=== PATIENT | female | born 1960 | race Caucasian/White ===

== ENCOUNTER → 2017-02-02 | Outpatient (CLI) | payer OTHER ==
--- NOTE | 2017-02-04 11:42 | MM ---
Reason for exam: screening (asymptomatic). Last mammogram was performed 1 year and 1 month ago. History: Patient is postmenopausal. Family history of premenopausal breast cancer in mother at age 38. Benign US left guided mammotome of the left breast, November 30, 2006. Took hormonal contraceptives for 2 years beginning at age 17. Physical Findings: A clinical breast exam by your physician is recommended on an annual basis and results should be correlated with mammographic findings. MG Screening Mammo w CAD Bilateral CC and MLO view(s) were taken. Prior study comparison: January 17, 2016, bilateral MG screening mammo w CAD. April 12, 2015, left breast MG diagnostic mammo LT w CAD. October 03, 2014, bilateral MG screening mammo w CAD. There are scattered fibroglandular densities. Previous mammotome biopsy within the left breast. ASSESSMENT: Negative, BI-RAD 1 RECOMMENDATION: Routine screening mammogram of both breasts in 1 year.
== END | disposition home or self-care (01) ==
LOC: RADMAMWWP 15:11
PROVIDERS: ATTEND Family Medicine
DX: Z12.31 Encounter for screening mammogram for malignant neoplasm of breast (principal)

== ENCOUNTER → 2018-04-25 | Outpatient (CLI) | payer BC ==
--- NOTE | 2018-04-26 10:23 | MM ---
Reason for exam: screening (asymptomatic). Last mammogram was performed 1 year and 3 months ago. History: Patient is postmenopausal. Family history of premenopausal breast cancer in mother at age 38. Benign US left guided mammotome of the left breast, November 30, 2006. Took hormonal contraceptives for 2 years beginning at age 17. Physical Findings: A clinical breast exam by your physician is recommended on an annual basis and results should be correlated with mammographic findings. MG Screening Mammo w CAD Bilateral CC and MLO view(s) were taken. Prior study comparison: February 02, 2017, bilateral MG screening mammo w CAD. January 17, 2016, bilateral MG screening mammo w CAD. There are scattered fibroglandular densities. Previous mammotome biopsy in the left breast. There is no discrete abnormality. "Split" nipple left breast stable. ASSESSMENT: Benign, BI-RAD 2 RECOMMENDATION: Routine screening mammogram of both breasts in 1 year.
== END | disposition home or self-care (01) ==
LOC: RADMAMWWP 11:47
PROVIDERS: ATTEND Family Medicine
DX: Z12.31 Encounter for screening mammogram for malignant neoplasm of breast (principal)
CPT/HCPCS: 77067

== ENCOUNTER 2018-08-26 09:55 | Day surgery (SDC) | payer BC ==
[2018-08-24 14:23] VITALS: BMI 46.7
[~2018-08-26 09:55] MED LIST: LACTATED RINGERS 1,000 ML IV SCH; LIDOCAINE 1% 20 ML VIAL (10MG/ML) FOR IV START INTRADERMA PRN
[2018-08-26] MEDS ORDERED: LIDOCAINE 1% INJ 10MG/ML (20 ML MDV) ONE (11:06)
[2018-08-26] MEDS ORDERED: PROPOFOL 10 MG/ML 20 ML VIAL IV ONE (11:06)
--- NOTE | 2018-08-26 11:09 | P.GSHP ---
History of Present Illness H&P Date: 08/26/18 Chief Complaint: Colon cancer screening Patient here today for colonoscopy. Last colonoscopy over 5 years ago. Family history of colon cancer in her father. Sister just past from pancreatic cancer. No bowel complaints. Past Medical History Past Medical History: Thyroid Disorder History of Any Multi-Drug Resistant Organisms: None Reported Past Surgical History: Cholecystectomy, Hysterectomy Additional Past Surgical History / Comment(s): COLONOSCOPY. PARTIAL THYROIDECTOMY. Past Anesthesia/Blood Transfusion Reactions: Motion Sickness Smoking Status: Never smoker Past Alcohol Use History: Occasional Past Drug Use History: None Reported - Past Family History Father Family Medical History: Cancer Mother Sister(s) Family Medical History: Cancer Sister(s) Daughter(s) Family Medical History: Deep Vein Thrombosis (DVT) Medications and Allergies Home Medications Medication Instructions Recorded Confirmed Type Acetaminophen [Tylenol Extra 500 - 1,000 mg PO Q6H PRN 08/24/18 08/24/18 History Strength] Ibuprofen [Motrin Ib] 400 mg PO Q6H PRN 08/24/18 08/24/18 History Levothyroxine Sodium [Tirosint] 150 mcg PO DAILY 08/24/18 08/24/18 History Melatonin (Unknown Dose) 1 tab PO HS PRN 08/24/18 History Allergies Allergy/AdvReac Type Severity Reaction Status Date / Time No Known Allergies Allergy Verified 08/24/18 13:57 Surgical - Exam Vital Signs Pulse Resp BP Pulse Ox 82 16 142/82 94 L 08/26/18 10:32 08/26/18 10:32 08/26/18 10:32 08/26/18 10:32 Physical exam: General: Well-developed, well-nourished HEENT: Normocephalic, sclerae nonicteric Abdomen: Nontender, nondistended Extremities: No edema Neuro: Alert and oriented Assessment and Plan (1) Colon cancer screening Narrative/Plan: Will proceed with colonoscopy at this time Current Visit: Yes Status: Acute Code(s): Z12.11 - ENCOUNTER FOR SCREENING FOR MALIGNANT NEOPLASM OF COLON SNOMED Code(s): 077630952
--- NOTE | 2018-08-26 11:19 | P.PCN ---
Date of Procedure: 08/26/18 Procedure(s) Performed: PREOPERATIVE DIAGNOSIS: Colon cancer screening, family history of colon cancer POSTOPERATIVE DIAGNOSIS: Diverticulosis PROCEDURE: Colonoscopy ANESTHESIA: MAC SURGEON: Min Bah M.D. SPECIMENS: None ENDOSCOPIC PROCEDURE: The patient was placed on the endoscopy table in the left decubitus position. The Olympus colonoscope was inserted into the anus and passed under direct visualization to the base of the cecum. The appendiceal orifice was visualized. From that point the scope was slowly withdrawn inspecting all surfaces carefully. There were no neoplastic inflammatory or polypoid lesions throughout the cecum, ascending, transverse, descending, sigmoid and rectum. There was moderate left-sided diverticulosis noted. Digital rectal examination was normal. The patient was taken to the recovery room in stable condition per anesthesia guidelines. RECOMMENDATIONS: Increase fiber. Follow-up colonoscopy 5 years.
[2018-08-26 11:40] VITALS: BP 148/78; PULSE 68; RESP 18
== END 2018-08-26 11:54 | disposition home or self-care (01) ==
LOC: ORWHC2ENDO 09:55
PROVIDERS: ATTEND Surgery
DX: Z12.11 Encounter for screening for malignant neoplasm of colon (principal); Z80.0 Family history of malignant neoplasm of digestive organs; K57.30 Diverticulosis of large intestine without perforation or abscess without bleeding; E07.9 Disorder of thyroid, unspecified; E89.0 Postprocedural hypothyroidism; Z79.890 Hormone replacement therapy
CPT/HCPCS: J2001; J2704; G0105

== ENCOUNTER → 2020-10-07 | Outpatient (CLI) | payer BC ==
--- NOTE | 2020-10-08 14:40 | MM ---
Reason for exam: screening (asymptomatic). Last mammogram was performed 2 years and 5 months ago. History: Patient is postmenopausal. Family history of premenopausal breast cancer in mother at age 38. Benign US left guided mammotome of the left breast, November 30, 2006. Took hormonal contraceptives for 2 years beginning at age 17. Physical Findings: A clinical breast exam by your physician is recommended on an annual basis and results should be correlated with mammographic findings. MG 3D Screening Mammo W/Cad Bilateral CC and MLO view(s) were taken. Prior study comparison: April 25, 2018, bilateral MG screening mammo w CAD. February 02, 2017, bilateral MG screening mammo w CAD. There are scattered fibroglandular densities. No significant changes when compared with prior studies. ASSESSMENT: Benign, BI-RAD 2 RECOMMENDATION: Routine screening mammogram of both breasts in 1 year.
== END | disposition home or self-care (01) ==
LOC: RADMAMWWP 12:00
PROVIDERS: ATTEND Family Medicine
DX: Z12.31 Encounter for screening mammogram for malignant neoplasm of breast (principal)
CPT/HCPCS: 77063; 77067

== ENCOUNTER → 2022-11-18 | Outpatient (CLI) | payer BC ==
--- NOTE | 2022-11-19 17:54 | MM ---
Reason for Exam: Screening (asymptomatic). Last mammogram was performed 2 year(s) and 1 month(s) ago. Patient History: Menarche at age 12. First Full-Term at age 20. Hysterectomy at age 47. Postmenopausal. Patient has history of breast feeding. Hormonal Contraceptives for 2 years from age 17 until age 19. 11/30/2006, Benign Core Biopsy on the left side. Mother had breast cancer, age 38. Risk Values: Kiera 5 year model risk: 3.6%. NCI Lifetime model risk: 14.5%. Prior Study Comparison: 02/02/2017 Bilateral Screening Mammogram, [facility]. 04/25/2018 Bilateral Screening Mammogram, [facility]. 10/07/2020 Bilateral Screening Mammogram, [facility]. Tissue Density: There are scattered fibroglandular densities. Findings: Analyzed By CAD. Pattern appears symmetrical and stable. A core marker is within the left breast. No suspicious groups of microcalcifications, spiculated or lobular masses, architectural distortion or other secondary signs of malignancy are mammographically apparent. Overall Assessment: Benign, BI-RAD 2 Management: Screening Mammogram of both breasts in 1 year. A negative mammogram report should not preclude additional follow up of suspicious palpable abnormalities. Patient should continue monthly self breast exam. A clinical breast exam by your physician is recommended on an annual basis and results should be correlated with mammographic findings. Electronically signed and approved by: Chele Banegas D.O. Radiologis
== END | disposition home or self-care (01) ==
LOC: RADMAMWWP 16:41
PROVIDERS: ATTEND Family Medicine
DX: Z12.31 Encounter for screening mammogram for malignant neoplasm of breast (principal); Z78.0 Asymptomatic menopausal state; Z80.3 Family history of malignant neoplasm of breast; Z98.890 Other specified postprocedural states
CPT/HCPCS: 77063; 77067

== ENCOUNTER → 2023-09-24 | Outpatient (CLI) | payer BC ==
--- NOTE | 2023-09-24 11:34 | US ---
EXAMINATION TYPE: US venous doppler duplex LE LT DATE OF EXAM: 09/24/2023 11:26 AM COMPARISON: NONE CLINICAL INDICATION: Female, 63 years old with history of R60.0 EDEMA R79.1 ELEVATED D DIMER; edema elevated d dimer SIDE PERFORMED: Left TECHNIQUE: The lower extremity deep venous system is examined utilizing real time linear array sonog ac with graded compression, doppler sonography and color-flow sonography. VESSELS IMAGED: Common Femoral Vein Deep Femoral Vein Greater Saphenous Vein * Femoral Vein Popliteal Vein Small Saphenous Vein * Proximal Calf Veins (* superficial vessels) Left Leg: Negative for DVT IMPRESSION: Grayscale, color doppler, spectral doppler imaging performed of the deep veins of the lo wer extremities. There is normal flow, compressibility, vascular waveforms.
== END | disposition home or self-care (01) ==
LOC: RADUSWWP 11:09
PROVIDERS: ATTEND Family Medicine
DX: R60.0 Localized edema (principal); R79.1 Abnormal coagulation profile

== ENCOUNTER → 2023-11-26 | Outpatient (CLI) | payer OTHER ==
--- NOTE | 2023-11-26 16:27 | MM ---
Reason for Exam: Screening (asymptomatic). Last screening mammogram was performed 12 month(s) ago. Patient History: Menarche at age 12. First Full-Term at age 20. Hysterectomy at age 47. Postmenopausal. Patient has history of breast feeding. Hormonal Contraceptives for 2 years from age 17 until age 19. 11/30/2006, Benign Core Biopsy on the left side. Mother had breast cancer, age 38. Risk Values: Kiera 5 year model risk: 3.6%. NCI Lifetime model risk: 14.1%. Prior Study Comparison: 04/25/2018 Bilateral Screening Mammogram, [facility]. 10/07/2020 Bilateral Screening Mammogram, [facility]. 11/18/2022 Bilateral MG 3D screening mammo w/cad, [facility]. Tissue Density: The breast tissue is almost entirely fat. Findings: Analyzed By CAD. There is no suspicious group of microcalcifications or new suspicious mass. Overall Assessment: Negative, BI-RAD 1 Management: Screening Mammogram of both breasts in [address] [facility] will attempt to contact patient to return for supplemental views and ultrasound if indicated. Patient should continue monthly self-breast exams. A clinical breast exam by your physician is recommended on an annual basis. This exam should not preclude additional follow-up of suspicious palpable abnormalities. Note on Kiera scores and lifetime risk: 1. A Kiera score greater than 3% is considered moderate risk. If this is the case, consider specialist referral to assess eligibility for a risk reducing agent. 2. If overall lifetime risk for the development of breast cancer is 20% or higher, the patient may qualify for future screening with alternating mammogram and breast MRI. Electronically signed and approved by: Wilder Islas DO
== END | disposition home or self-care (01) ==
LOC: RADMAMWWP 15:42
PROVIDERS: ATTEND Family Medicine
DX: Z12.31 Encounter for screening mammogram for malignant neoplasm of breast (principal); Z80.3 Family history of malignant neoplasm of breast; Z78.0 Asymptomatic menopausal state
CPT/HCPCS: 77063; 77067

== ENCOUNTER → 2024-09-11 | Outpatient (CLI) | payer MEDICARE ==
--- NOTE | 2024-09-14 16:58 | XR ---
EXAMINATION TYPE: XR lumbar spine 2 or 3V DATE OF EXAM: 09/11/2024 4:57 PM COMPARISON: None. CLINICAL INDICATION: Female, 64 years old with history of M54.32 SCIATICA, LEFT SIDE, TECHNIQUE: 3 view(s) obtained. FINDINGS: There are 5 lumbar-type vertebral bodies. Pedicles are intact. Loss of disc height L4-5 and L5-S1. Sp ondylosis is present. There is straightening of the lumbar spine sagittal plane. Vertebral body heigh ts are preserved IMPRESSION: 1. Degenerative disc changes L4-5 and L5-S1. 2. Spondylosis [facility], , 09/14/2024 4:56 PM
== END | disposition home or self-care (01) ==
LOC: RADXRMAIN 16:37
PROVIDERS: ATTEND Family Medicine
DX: M51.360 Other intervertebral disc degeneration, lumbar region with discogenic back pain only (principal); M47.817 Spondylosis without myelopathy or radiculopathy, lumbosacral region; M47.816 Spondylosis without myelopathy or radiculopathy, lumbar region; M54.32 Sciatica, left side
CPT/HCPCS: 72100

== ENCOUNTER → 2025-01-18 | Outpatient (CLI) | payer MEDICARE ==
--- NOTE | 2025-01-18 13:37 | MM ---
Reason for Exam: Screening (asymptomatic). Last mammogram was performed 1 year(s) and 2 month(s) ago. Patient History: Menarche at age 12. First Full-Term at age 20. Hysterectomy at age 47. Postmenopausal. Patient has history of breast feeding. Hormonal Contraceptives for 2 years from age 17 until age 19. 11/30/2006, Benign Core Biopsy on the left side. Mother had breast cancer, age 38. Risk Values: Kiera 5 year model risk: 3.7%. NCI Lifetime model risk: 13.6%. Prior Study Comparison: 10/07/2020 Bilateral Screening Mammogram, [facility]. 11/18/2022 Bilateral MG 3D screening mammo w/cad, [facility]. 11/26/2023 Bilateral MG 3D screening mammo w/cad, [facility]. Tissue Density: There are scattered areas of fibroglandular density. Findings: Analyzed By CAD. Mammotome biopsy clip in the left breast inferiorly is redemonstrated. Benign vascular calcifications in the right breast. Benign-appearing right axillary lymph nodes are redemonstrated. There is no suspicious new group of microcalcifications or new suspicious mass in either breast. Overall Assessment: Benign, BI-RAD 2 Management: Screening Mammogram of both breasts in 1 year. . Patient should continue monthly self-breast exams. A clinical breast exam by your physician is recommended on an annual basis. This exam should not preclude additional follow-up of suspicious palpable abnormalities. Note on Kiera scores and lifetime risk: 1. A Kiera score greater than 3% is considered moderate risk. If this is the case, consider specialist referral to assess eligibility for a risk reducing agent. 2. If overall lifetime risk for the development of breast cancer is 20% or higher, the patient may qualify for future screening with alternating mammogram and breast MRI. [facility], , 01/18/2025 1:34 PM. Electronically signed and approved by: Jeffrey Sahu M.D.
== END | disposition home or self-care (01) ==
LOC: RADMAMWWP 13:10
PROVIDERS: ATTEND Family Medicine
DX: Z12.31 Encounter for screening mammogram for malignant neoplasm of breast (principal); R92.323 Mammographic fibroglandular density, bilateral breasts; Z78.0 Asymptomatic menopausal state; Z80.3 Family history of malignant neoplasm of breast
CPT/HCPCS: 77063; 77067

== ENCOUNTER → 2025-01-22 | Outpatient (CLI) | payer MEDICARE ==
--- NOTE | 2025-01-22 14:42 | XR ---
EXAMINATION TYPE: XR Hip Complete RT DATE OF EXAM: 01/22/2025 2:34 PM COMPARISON: None CLINICAL INDICATION: Female, 64 years old with history of M25.551 PAIN IN RIGHT HIP; PHH, pain TECHNIQUE: XR Hip Complete RT; Frontal and lateral views FINDINGS: No evidence for acute process, joint dislocation or significant soft tissue swelling. Osteo phyte formation of the superior acetabulum of the hip. There is mild joint space narrowing. IMPRESSION: 1. No evidence for acute process. 2. Mild hip osteoarthrosis. [facility], , 01/22/2025 2:40 PM
== END | disposition home or self-care (01) ==
LOC: RADXRMAIN 14:22
PROVIDERS: ATTEND Family Medicine
DX: M16.11 Unilateral primary osteoarthritis, right hip (principal)
CPT/HCPCS: 73502

== ENCOUNTER → 2025-05-01 | Outpatient (CLI) | payer MEDICARE ==
--- NOTE | 2025-05-02 08:38 | MR ---
EXAMINATION TYPE: MR lumbar spine wo con DATE OF EXAM: 05/01/2025 5:08 PM COMPARISON: None. CLINICAL INDICATION: Female, 64 years old with history of M54.59 LOW BACK PAIN, M51.369 OTH INTVRT DI SC DEGE, Low back pain into rt side IV Contrast: cc (None if empty) TECHNIQUE: Multiplanar, multisequence images of the lumbar spine were acquired without IV contrast. L1-L2: Moderate disc desiccation with small disc protrusion noted in mild effacement of ventral theca l sac. There is trefoiling of the cauda equina at this level. No central stenosis. L2-L3: Severe disc desiccation with posterior disc bulge, hypertrophy of the ligamentum flavum and fa cet joint arthropathy resulting in severe central stenosis. Bilateral foraminal encroachment right gr eater than left. L3-L4: Moderate disc desiccation and posterior disc bulge. Hypertrophic ligamentum flavum and facet j oint arthropathy resulting in moderate to severe central stenosis. Bilateral foraminal encroachment. L4-L5: Severe disc desiccation with hyperintense endplate marrow changes. Posterior disc bulge withou t central stenosis or disc herniation. Moderate bilateral foraminal encroachment left greater than ri ght. L5-S1: Severe disc desiccation with hyperintense endplate marrow changes. Posterior disc bulge withou t central stenosis or disc herniation. Moderate bilateral foraminal encroachment left greater than ri ght. Lumbar segments are intact. No paraspinal masses are identified. Conus medullaris has a normal appe arance. IMPRESSION: 1. Multilevel degenerative disc disease as outlined above with multilevel foraminal encroachment and central stenosis. [facility], , 05/02/2025 8:36 AM
== END | disposition home or self-care (01) ==
LOC: RADMRIMAIN 16:13
PROVIDERS: ATTEND Family Medicine
DX: M48.061 Spinal stenosis, lumbar region without neurogenic claudication (principal); M51.360 Other intervertebral disc degeneration, lumbar region with discogenic back pain only
CPT/HCPCS: 72148